=== PATIENT | female | born 1950 | race Caucasian/White ===

== ENCOUNTER 2019-02-01 08:28 | Day surgery (SDC) | payer OTHER, SELFPAY ==
--- NOTE | 2019-02-01 | PATH_ITS ---
[facility] Accession Number: [id number] . 01 Material submitted: . PART A: ileum - TERMINAL ILEUM PART B: colon - RIGHT COLON RANDOM PART C: colon - TRANSVERSE COLON RANDOM PART D: colon - LEFT COLON RANDOM PART E: sigmoid colon - SIGMOID POLYP PART F: rectum - RECTAL . 02 Diagnosis: A. Terminal Ileum, Biopsy: Small bowel mucosa with no diagnostic abnormality. Negative for active inflammation, dysplasia, and malignancy. . B.- D., F. Right Colon, Transverse Colon, Left Colon, Rectum, Biopsies: Colonic mucosa with no diagnostic abnormality. Negative for active, chronic, and microscopic colitis. Negative for dysplasia and malignancy. . E. Sigmoid Colon, Polyp, Biopsy: Tubular adenoma. I02/02/2019 . 02 Electronically signed: . Dominique Lopez MD, Pathologist NPI- [id number] . 01 Gross description: . Part A: TERMINAL ILEUM: Received in formalin are 4 fragment(s) of sheriff, soft tissue measuring 0.2 x 0.2 x 0.1 cm to 0.3 x 0.2 x 0.2 cm which is entirely submitted and submitted entirely in 1 cassette(s) .. Part B: RIGHT COLON RANDOM: Received in formalin are multiple fragment(s) of sheriff, soft tissue measuring 0.2 x 0.2 x 0.2 cm to 0.4 x 0.3 x 0.2 cm which is entirely submitted and submitted entirely in 1 cassette(s) Part C: TRANSVERSE COLON RANDOM: Received in formalin are 4 fragment(s) of sheriff, soft tissue measuring 0.2 x 0.2 x 0.2 cm to 0.5 x 0.4 x 0.4 cm which is entirely submitted and submitted entirely in 1 cassette(s) Part D: LEFT COLON RANDOM: Received in formalin are multiple fragment(s) of sheriff, soft tissue measuring 0.1 x 0.1 x 0.1 cm to 0.3 x 0.3 x 0.3 cm which is entirely submitted and submitted entirely in 1 cassette(s) Part E: SIGMOID POLYP: Received in formalin is 1 fragment(s) of sheriff, soft tissue measuring 0.3 x 0.2 x 0.2 cm which is entirely submitted and submitted entirely in 1 cassette(s) Part F: RECTAL: Received in formalin are 2 fragment(s) of sheriff, soft tissue measuring 0.2 x 0.2 x 0.2 cm to 03 x 0.2 x 0.2 cm which is entirely submitted and submitted entirely in 1 cassette(s) /D[facility] /[facility] . 02 Pathologist provided ICD-10: D12.5 . 02 CPT . 308046, 653844, 107421, 850728, 511607, 362432 Performed at: 01 [facility] [address] [place] [address], [place], [place] [id number] MD Fausto Iglesias MD Phone: [phone] Performed at: 02 [facility] [place] [address] [place], [place] [id number] MD Dominique Lopez MD Phone: [phone]
--- NOTE | 2019-02-01 08:43 | P.HP_ITS ---
History of Present Illness Date Patient Seen: 02/01/19 Chief complaint: [id number] COLONOSCOPY Narrative: 68-year-old female with history of Crohn's disease who was last seen at our office on 01/05/[address] Brown. Please refer to that note for further details. She has a history of diarrhea which is concerning for a Crohn's flare. Patient History Medical History (Updated 02/01/19 @ 08:53 by Marcus Ch) Crohn's colitis (Acute) Depression (Acute) Diabetes mellitus (Acute) Hypertension (Acute) Sleep apnea (Acute) Meds Home Medications Medication Instructions Recorded Confirmed Type atorvastatin 10 mg PO DAILY 02/01/19 02/01/19 History cyclobenzaprine 10 mg PO TID PRN 02/01/19 02/01/19 History losartan 50 mg PO DAILY 02/01/19 02/01/19 History metformin 1,000 mg PO QPM 02/01/19 02/01/19 History methylphenidate HCl 40 mg PO DAILY 02/01/19 02/01/19 History trazodone 50 mg PO BEDTIME 02/01/19 02/01/19 History Allergies Allergy/AdvReac Type Severity Reaction Status Date / Time Iodinated Contrast- Oral and Allergy Severe Hives Verified 02/01/19 08:56 IV Dye zolpidem [From Ambien] Allergy Intermediate Nose bleeds Verified 02/01/19 08:56 Sulfa (Sulfonamide Allergy Mild unknown Verified 02/01/19 08:56 Antibiotics) Exam Narrative Exam Narrative: General: Patient is obese, not in apparent distress Cardiovascular: Regular rate and rhythm, no murmurs, rubs, or gallops; no evidence of edema; no palpable abdominal aortic aneurysm Gastrointestinal: Normoactive bowel sounds, soft, nontender, nondistended, no rebound tenderness, no hepatosplenomegaly, no evidence of hernia Assessment & Plan Assessment & Plan narrative: 68-year-old female with a history of Crohn's disease and diarrhea who is here for disease activity assessment and colon ca ncer surveillance. Regarding the procedure(s), the risks and potential complications, benefits, and alternatives (including not doing the procedure) were discussed with the patient. The risks include but are not limited to bleeding, splenic injury, infection, perforation which may require surgical intervention, missed lesions, and adverse reactions to sedative medicines. After a question and answer period, the patient agreed to proceed with the procedure(s) and gives informed consent.
[2019-02-01 08:59] VITALS: BMI 36.6
[2019-02-01 09:03] VITALS: BP 133/84; PULSE 102; RESP 12; TEMP 36.4; O2SAT 96
[2019-02-01] MEDS: SODIUM CHLORIDE 0.9% 1,000 ML 70 ML IV (09:19)
[2019-02-01 09:42] VITALS: BMI 36.6
[2019-02-01] MEDS: MIDAZOLAM 5 MG/5 ML VIAL IV (09:53)
[2019-02-01] MEDS: fentaNYL 250 MCG/5 ML INJ IV (09:54)
--- NOTE | 2019-02-01 10:16 | PM.OP.ENDO ---
Operative Date/Time/Diagnoses Date of procedure: 02/01/19 Procedure Notes Procedure in detail: Surgeon: Ladarius Brady MD Procedure: Colonoscopy with polypectomy and random biopsies Preoperative diagnosis: Crohn's disease with diarrhea Postoperative diagnosis: Sigmoid polyp status post polypectomy, grade 1 internal hemorrhoids, normal visualized mucosa Medications: Conscious sedation using 5 mg IV of Midazolam and 150 mcg IV of Fentanyl Preanesthesia Assessment An H and P was performed/updated and the Px?s ASA class is 2. The procedure was discussed in detail with the patient. The potential risks and complications including infection, bleeding, missed lesions, perforation, need for surgery in case of perforation, prolonged hospital stay, and were explained. A brief question and answer period was allotted and once all questions were answered, informed consent was obtained. The patient was brought back to the procedure room and placed on standard monitoring. The patient?s vital signs were monitored continuously throughout the entire procedure. Prior to starting, a timeout was performed to confirm the patient?s identity, allergies, medications, and procedure. Procedure in detail The patient was placed in left lateral decubitus position and once adequate sedation was obtained a LOR was performed. The digital rectal examination did not reveal any palpable lesions. The tip of the colonoscope was placed in the anal canal and advanced without difficulty all the way to the cecum which was identified by the appendiceal orifice and the ileocecal valve. The terminal ileum was intubated to a distance of 5 cm from the ileocecal valve and there was no gross abnormality seen. Random biopsies were taken. The scope was then brought back to the cecum and careful examination of all gonzalez of the colon was performed with irrigation of any residual stool. The colonic mucosa throughout the entire colon appeared normal. Random colon biopsies were obtained from the right colon, transverse colon, left colon, and rectum. In the sigmoid colon, a 3 mm sessile polyp was seen and removed by means of cold Jumbo forceps. Resection and retrieval were complete with minimal bleeding Retroflexion was performed in the rectum with evidence of grade 1 internal hemorrhoids The patient tolerated the procedure well and will be brought back to the recovery area to be discharged once criteria are met. The prep was judged to be good and adequate to identify polyps less than 5 mm. The withdrawal time was 13 minutes. The total physician intraservice time was 23 minutes. Complications There were no complications and estimated blood loss was minimal. Recommendations: Resume previous diet Continue outPx medications Follow up pathology results Repeat colonoscopy in 5 years for polyp surveillance Office follow up with Dr. Brown at next available appointment An emergency contact number was given to the patient for any complications related to the procedure
[2019-02-01 10:17] VITALS: BP 122/81; PULSE 95; RESP 16; TEMP 36.5; O2SAT 95
[2019-02-01 10:22] VITALS: BP 110/68; PULSE 93; RESP 14; O2SAT 94
--- NOTE | 2019-02-01 10:22 | P.DS_ITS ---
History of Present Illness Chief complaint: [id number] COLONOSCOPY Narrative: 68-year-old female with history of Crohn's disease who was last seen at our office on 01/05/[address] Brown. Please refer to that note for further details. She has a history of diarrhea which is concerning for a Crohn's flare. Discharge Providers Discharge Date: 02/01/19 Primary care physician: Elkin Ernandez MD Consults: 02/01/19 09:03 Consult to Respiratory Therapy Evaluate & Treat Comment: Physician Instructions: Evaluate and treat Discharge provider: Ladarius Brady MD Exam Vital Signs (past 8 hours): - 02/01/19 09:03 Temperature 97.5 F L Pulse Rate 102 H Respiratory Rate 12 Blood Pressure 133/84 Pulse Oximetry 96 Oxygen Delivery Method Room Air Narrative Exam Narrative: General: Patient is obese, not in apparent distress Cardiovascular: Regular rate and rhythm, no murmurs, rubs, or gallops; no evidence of edema; no palpable abdominal aortic aneurysm Gastrointestinal: Normoactive bowel sounds, soft, nontender, nondistended, no rebound tenderness, no hepatosplenomegaly, no evidence of hernia Discharge Plan Discharge Plan Patient Disposition: Home Discharge Med Rec/Prescriptions Prescriptions: Continued losartan 50 mg Tablet 50 mg PO DAILY RF: 0 cyclobenzaprine 10 mg Tablet 10 mg PO TID PRN (Reason: Back Pain) RF: 0 trazodone 50 mg Tablet 50 mg PO BEDTIME RF: 0 atorvastatin 10 mg Tablet 10 mg PO DAILY RF: 0 methylphenidate HCl 40 mg Capsule,Er Biphasic 50-50 40 mg PO DAILY RF: 0 metformin 1,000 mg Tablet Extended Release 24hr 1,000 mg PO QPM RF: 0 Follow up/Referrals: Elkin Ernandez MD [Primary Care Provider] - Discharge Orders: Discharge (Order); Ordered 02/01/19 Ordered By: Ladarius Brady Provider Discharge Instructions Diet: Diet as Tolerated Visit Report/Discharge Packet Stand Alone Forms: Colonoscopy Result: Med [facility] Discharge Data Primary Care Provider: Elkin Ernandez Attending Provider: Ladarius Brady
[2019-02-01 10:27] VITALS: BP 108/70; PULSE 102; RESP 16; O2SAT 97
[2019-02-01 10:33] VITALS: BP 109/71; PULSE 95; RESP 14; TEMP 36.7; O2SAT 97
[2019-02-01 10:50] VITALS: BP 106/75; PULSE 87; RESP 18; TEMP 36.4; O2SAT 95
== END 2019-02-01 11:02 | disposition home or self-care (01) ==
PROVIDERS: PCP Family Medicine; Visit Provider Internal Medicine Gastroenterology
PROC: 0DJD8ZZ Inspection of Lower Intestinal Tract, Via Natural or Artificial Opening Endoscopic (ICD-10-PCS; CPT 45378; principal; 2019-02-01 10:00)
DX: K50.90 Crohn's disease, unspecified, without complications (principal); Z86.010 Personal history of colon polyps; R19.7 Diarrhea, unspecified; E11.9 Type 2 diabetes mellitus without complications; I10 Essential (primary) hypertension; R53.82 Chronic fatigue, unspecified; F32.9 Major depressive disorder, single episode, unspecified; K64.0 First degree hemorrhoids; D12.5 Benign neoplasm of sigmoid colon
CPT/HCPCS: 45380; J2250; J3010

== ENCOUNTER → 2020-02-15 14:35 | Outpatient (CLI) | payer OTHER, SELFPAY ==
--- NOTE | 2020-02-15 15:54 | PM.TREADMILL ---
Cardiac Stress Test Report Referral & Results Date Patient Seen: 02/15/20 Time Patient Seen: 15:54 Requesting provider: Dinesh Mendoza Indication: dyspnea Rest ECG: sinus rhythm Procedure Note: Stardard Abdon protocol, 3:13, 3.5 METS Reduced exercise capacity, JANEE +43% Normal hemodynamic response to exercise No chest pain or anginal symptoms No ST changes or ectopy Impression: Equivocal stress test Please note: Actual ECG tracings can be found in the PACS system.
--- NOTE | 2020-02-17 02:01 | DI.NM.S_ITS ---
DATE OF SERVICE: 02/15/2020 PROCEDURE: Exercise perfusion study. INDICATIONS: Exertional shortness of breath, hypertension, hyperlipidemia, diabetes mellitus. RADIOPHARMACEUTICAL: 25.8 mCi technetium-99m Myoview intravenous was injected at stress and 25.6 mCi technetium-99m Myoview intravenous was injected at rest. CARDIAC STRESS: The patient underwent exercise perfusion study under the supervision of an attending staff. She walked on Abdon protocol for 3 minutes and 13 seconds and developed shortness of breath and fatigue. No chest pain. Baseline blood pressure 130/80. Peak blood pressure 178/90. The patient achieved 99% of target heart rate, 4.6 METS of workload, and functional aerobic impairment positive 43%. Baseline rhythm was sinus. During stress, there was some artifact but no convincing ischemic changes. No significant arrhythmia seen. RAW DATA: There is increased subdiaphragmatic activity. The patient's weight is 206 pounds. Gated study resting LV ejection fraction 68 and stress LV ejection fraction 67% without any obvious wall motion abnormalities. Resting end-diastolic volume 74 mL. No transient ischemic dilatation. TID ratio 1.03 which is within normal limits. Lung heart ratio 0.32, which is within normal limits. MYOCARDIAL PERFUSION SCAN: Stress supine, resting supine images revealed minimally decreased perfusion of anterior wall, anterior apex which got significantly improved during prone images suggestive of breast tissue attenuation artifact. No convincing ischemia or infarction pattern seen during prone images. CONCLUSION: I will call this study likely a normal myocardial perfusion study with evidence of breast tissue attenuation artifact which got improved during prone images. Poor exercise tolerance. Patient developed shortness of breath during exercise. Normal hemodynamic response. No significant arrhythmias. As far as perfusion scan is concerned, this is a low risk myocardial perfusion scan. Consider workup to rule out other etiologies like pulmonary workup as well as diastolic dysfunction. Dominique Walden - SHAYY/nadege/BERNADINE doc#: [id number]/job#: [id number] dd: 02/16/2020 17:04:00 dt: 02/17/2020 01:48:00 DICTATING MD/COPIES TO: Beverley Carr MD COPIES MNE: MARIANNE;
== END ==
PROVIDERS: PCP Family Medicine; Referring Provider Internal Medicine Cardiovascular Disease; Visit Provider Internal Medicine Cardiovascular Disease
DX: R06.02 Shortness of breath (principal); R06.09 Other forms of dyspnea; I10 Essential (primary) hypertension; R00.2 Palpitations; E78.5 Hyperlipidemia, unspecified; I11.9 Hypertensive heart disease without heart failure
CPT/HCPCS: 78452; 93017; A9502

== ENCOUNTER 2020-04-01 20:52 | Emergency (ER) | payer OTHER, SELFPAY ==
[2020-04-01 20:56] VITALS: BP 152/69; PULSE 85; RESP 18; TEMP 36.6; O2SAT 97
[2020-04-01 21:25] LABS: Appearance Urine UA SL CLOUDY; Bilirubin Urine UA NEGATIVE (NEGATIVE); Color Urine UA YELLOW; Glucose Urine UA NEGATIVE (Negative); Ketones Urine UA NEGATIVE (NEGATIVE); Leukocyte Esterase Urine UA NEGATIVE (NEGATIVE); Nitrite Urine UA NEGATIVE (Negative); Occult Blood Urine UA 3+ (Negative); Protein Urine UA TRACE (Negative); Specific Gravity Urine UA <=1.005 (1.000-1.035); Urobilinogen Urine UA 0.2 E.U./dL (0.2)
[2020-04-01 21:29] LABS: RBC Urine 30-100/HPF (0-5/HPF); Squamous Epithelial Cell Urine 1-5 /HPF (0-5/HPF); WBC Urine 1-5/HPF (0-5/HPF)
[2020-04-01 21:30] LABS: Amorphous Sediment Urine 1+; Bacteria Urine Occasional (0-1); Culture Indicated Urine Cult Not Indicated
[2020-04-01 21:51] LABS: Add Manual Diff / Slide Review NO; Basophils Absolute Auto 0 /uL (0-100); Basophils Percent Auto 0.3 % (0-2); Eosinophils Absolute Auto 100 /uL (0-450); Hematocrit 37.8 % (36-46); Hemoglobin 12.6 g/dL (12.0-16.0); Lymphocytes Absolute Auto 3800 /uL (1100-4500); Lymphocytes Percent Auto 33.8 % (25-40); Mean Corpuscular HGB Conc 33.4 % (30-36); Mean Corpuscular Hemoglobin 30.2 PG (26-34); Mean Corpuscular Volume 90.3 fL (80-100); Monocytes Absolute Auto 800 /uL (0-900); Monocytes Percent Auto 7.2 % (3-14); Neutrophils Absolute Auto 6400 /uL (1500-7000); Neutrophils Percent Auto 57.7 % (50-75); Platelet Count 269 X10^3/uL (150-400); Red Blood Cell Count 4.18 X10^6/uL (4.0-5.2); Red Cell Distribution Width 13.6 % (11.6-14.8); White Blood Cell Count 11.2 X10^3/uL (4.5-11.0)
[2020-04-01 21:57] LABS: Alanine Aminotransferase 41 IU/L (<35); Albumin Globulin Ratio 1.3 (1.0-2.8); Alkaline Phosphatase 85 U/L (38-126); Aspartate Aminotransferase 40 IU/L (14-36); BUN Creatinine Ratio 13.7 (6-22); Bilirubin Total 0.3 mg/dL (0.2-1.3); Blood Urea Nitrogen 13 mg/dL (7-17); Calcium 9.1 mg/dL (8.4-10.2); Carbon Dioxide 24 mmol/L (22-32); Chloride 107 mmol/L (98-107); Estimated Glomerular Filt Rate 58.7 mL/min (>60); Glucose 132 mg/dL (80-110); HEMOLYSIS 17 (0-50); Lipase 73 U/L (23-300); Sodium 137 mmol/L (137-145)
[2020-04-01] MEDS: SODIUM CHLORIDE 0.9% 1,000 ML 150 ML IV (22:13)
[2020-04-01] MEDS: KETOROLAC 60 MG/2 ML VIAL 30 MG IV (22:14)
--- NOTE | 2020-04-01 22:25 | DI.CT.S_ITS ---
PROCEDURE: CT KIDNEY URETER BLADDER (KUB) INDICATIONS: Left flank pain with hematuria TECHNIQUE: Noncontrast 5 mm thick sections acquired from the diaphragms to the symphysis. 5 mm thick coronal and sagittal reformats were then performed. For radiation dose reduction, the following was used: automated exposure control, adjustment of mA and/or kV according to patient size. COMPARISON: None. FINDINGS: Image quality: Excellent. Lung bases: Lung bases are clear. Heart size is normal. Small hiatal hernia. The Urinary system: There is a 4 mm stone in the distal left ureter at the left UVJ. Mild left hydronephrosis is present. There is mild left periureteral stranding. A 2 mm nonobstructive calculus is present in left kidney. There is a 1 mm nonobstructing stone in right kidney. No right hydronephrosis. Both kidneys are normal in size. Both ureters appear non-dilated throughout their expected courses. Bladder is contracted; no calcified bladder stones. Other solid organs: There is hepatic steatosis. Liver is normal in size. Gallbladder contains a gallstone. Pancreas is normal in contours. Spleen is normal in size. No adrenal nodules. Peritoneum and bowel: Unenhanced bowel loops demonstrate normal wall thickness and caliber. No free fluid or air. Nodes and vessels: No retroperitoneal or mesenteric adenopathy by size criteria. Aorta and inferior vena cava are normal in caliber. Abdominal wall: No ventral hernias. Pelvis: No free pelvic fluid. No inguinal hernias or adenopathy. Bones: No suspicious bony lesions. No vertebral body compression fractures. [id number]-rg-[id number] degenerative changes in lumbar spine. IMPRESSION: 1. A 4 mm left distal ureteral stone in the left uterovesical junction. There is mild left hydronephrosis. 2. Several 1-2 mm nonobstructive renal calculi bilaterally. 3. Hepatic steatosis. 4. Cholelithiasis. No significant discrepancy with the manager [employer] [facility] preliminary report. Dictated by: Tommy Sanchez M.D. on 04/02/2020 at 7:51 Approved by: Tommy Sanchez M.D. on 04/02/2020 at 8:00
[2020-04-01 23:21] VITALS: BP 112/65; PULSE 62; RESP 12; O2SAT 100
--- NOTE | 2020-04-01 23:55 | ED_ITS ---
HPI - Back Pain/Injury General Chief Complaint: Back Pain/Injury Stated Complaint: thinks she has a kidney stone Time Seen by Provider: 04/01/20 22:24 Source: patient Mode of arrival: Ambulatory Limitations: no limitations History of Present Illness HPI Narrative: The patient developed left midback pain this morning. She has had nausea. She has some pain radiating to the left flank. She noted hematuria. She has had no emesis, no diarrhea. She denies dysuria. She has no fever. She has a prior history of kidney stones. She has never required interventional care for the kidney stones. She has no fever chills with current symptoms. She denies recent illness. She has no URI symptoms, or cough. Related Data Home Medications Medication Instructions Recorded Confirmed atorvastatin 10 mg PO DAILY 02/01/19 02/01/19 cyclobenzaprine 10 mg PO TID PRN 02/01/19 02/01/19 losartan 50 mg PO DAILY 02/01/19 02/01/19 metformin 1,000 mg PO QPM 02/01/19 02/01/19 methylphenidate HCl 40 mg PO DAILY 02/01/19 02/01/19 trazodone 50 mg PO BEDTIME 02/01/19 02/01/19 Previous Rx's Medication Instructions Recorded hydrocodone-acetaminophen [Henderson] 1 tab PO Q4-6H PRN #10 tab 04/02/20 ondansetron 4 mg PO Q4H PRN #10 tab 04/02/20 Allergies Allergy/AdvReac Type Severity Reaction Status Date / Time Iodinated Contrast Media Allergy Severe Hives Verified 02/01/19 08:56 [Iodinated Contrast- Oral and IV Dye] zolpidem [From Ambien] Allergy Intermediate Nose bleeds Verified 02/01/19 08:56 Sulfa (Sulfonamide Allergy Mild unknown Verified 02/01/19 08:56 Antibiotics) Review of Systems Review of Systems ROS Unobtainable: All systems reviewed & are unremarkable except as noted in HPI and below ENT Ears, Nose, Mouth, and Throat: Denies dizziness and Denies sore throat Cardiovascular Cardiovascular: Denies chest pain, Denies irregular heart rhythm, Denies lightheadedness, Denies dyspnea and Denies orthopnea Respiratory Respiratory: Denies cough and Denies dyspnea Gastrointestinal Gastrointestinal: Reports abdominal pain (Left mid abdomen), Denies dyspepsia, Denies diarrhea and Reports nausea Genitourinary Genitourinary: Reports hematuria and Denies dysuria Genitourinary: Reports hematuria and Denies dysuria Musculoskeletal Musculoskeletal: Reports as per HPI and Reports back pain Integumentary/Breasts Skin/Breast: Denies erythema, Denies rash and Denies wounds Neurologic Neurologic: Denies confusion and Denies dizziness Psychiatric Psychiatric: Denies anxiety and Denies confusion Patient History Medical History Crohn's colitis (Acute) Depression (Acute) Diabetes mellitus (Acute) Hypertension (Acute) Sleep apnea (Acute) Exam Initial Vital Signs Initial Vital Signs: Vital Signs Temperature 97.9 F 04/01/20 20:56 Pulse Rate 85 04/01/20 20:56 Respiratory Rate 18 04/01/20 20:56 Blood Pressure 152/69 H 04/01/20 20:56 Pulse Oximetry 97 04/01/20 20:56 Const General: cooperative and well developed Nutritional Appearance: well nourished HENMT Throat: posterior oropharynx normal Eyes Pupils: PERRL EOM: EOM intact bilaterally Resp Effort & Inspection: normal respiratory effort and able to speak in complete sentences Auscultation: clear to auscultation bilaterally, no rales, no rhonchi and no wheezes Cardio Rate: regular rate Rhythm: regular rhythm Heart Sounds: S1 normal, S2 normal, no click, no gallops, no murmurs and no rubs Pulses: normal peripheral pulses GI Inspection: non-distended Palpation: soft, no hepatosplenomegaly, No pulsatile mass and tender (Left mid abdomen without guarding or rebound) Auscultation: normal bowel sounds Back/Spine/Pelvis Back: No CVA tenderness Skin General: no rashes or lesions noted and No jaundice Neuro General: patient alert, patient oriented x3, gait normal and no focal motor deficits Speech: speech normal Extrem General: no pedal edema and no calf tenderness Course Course Course Narrative: The patient's pain has resolved with Toradol. She has no nausea vomiting. She has no fever. It is noted that the stone is at the UV junction. Orders Ordered: ED Orders 04/01/20 21:10 Urinalysis and Microscopic Stat 04/01/20 21:40 Complete Blood Count AUTO DIFF Stat Comprehensive Metabolic Panel Stat Lipase Stat 04/01/20 22:25 CT kidney ureter bladder (KUB) Stat Sodium Chloride (Normal Saline 0.9%) 1,000 mls @ 150 mls/hr IV CONT ANGELIA Last Admin: 04/01/20 22:13 Dose: 150 mls/hr Documented by: SINCERE Discontinued Medications Ketorolac Tromethamine (Toradol) 30 mg IV NOW ONE Stop: 04/01/20 22:10 Last Admin: 04/01/20 22:14 Dose: 30 mg Documented by: SINCERE Tamsulosin HCl (Flomax) 0.4 mg PO NOW ONE Stop: 04/01/20 23:30 Last Admin: 04/02/20 00:05 Dose: 0.4 mg Documented by: SINCERE Vital Signs Vital signs: Vital Signs - 8 hr 04/01/20 20:56 04/01/20 23:21 Temperature 97.9 F Pulse Rate 85 62 Respiratory Rate 18 12 Blood Pressure 152/69 H Blood Pressure [Right Arm] 112/65 Pulse Oximetry 97 100 MDM - Back Pain/Injury Lab Data Result diagrams: 04/01/20 21:40 04/01/20 21:40 Labs: Lab Results 04/01/20 04/01/20 04/01/20 Range/Units 21:10 21:40 21:40 WBC 11.2 H (4.5-11.0) X10^3/uL RBC 4.18 (4.0-5.2) X10^6/uL Hgb 12.6 (12.0-16.0) g/dL Hct 37.8 (36-46) % MCV 90.3 (80-100) fL MCH 30.2 (26-34) PG MCHC 33.4 (30-36) % RDW 13.6 (11.6-14.8) % Plt Count 269 (150-400) X10^3/uL Neut % (Auto) 57.7 (50-75) % Lymph % (Auto) 33.8 (25-40) % [place] % (Auto) 7.2 (3-14) % Eos % (Auto) 1.0 L (2-4) % Baso % (Auto) 0.3 (0-2) % Neut # (Auto) 6400 (3369-0875) /uL Lymph # (Auto) 3800 (5143-6233) /uL [place] # (Auto) 800 (0-900) /uL Eos # (Auto) 100 (0-450) /uL Baso # (Auto) 0 (0-100) /uL Sodium 137 (137-145) mmol/L Potassium 4.0 (3.4-5.1) mmol/L Chloride 107 (98-107) mmol/L Carbon Dioxide 24 (22-32) mmol/L BUN 13 (7-17) mg/dL Creatinine 0.95 (0.52-1.04) mg/dL Estimated GFR 58.7 L (>60) mL/min BUN/Creatinine Ratio 13.7 (6-22) Glucose 132 H (80-110) mg/dL Calcium 9.1 (8.4-10.2) mg/dL Total Bilirubin 0.3 (0.2-1.3) mg/dL AST 40 H (14-36) IU/L ALT 41 H (<35) IU/L Alkaline Phosphatase 85 (38-126) U/L Total Protein 7.0 (6.3-8.2) g/dL Albumin 4.0 (3.5-5.0) g/dL Globulin 3.0 (1.7-4.1) g/dL Albumin/Globulin Ratio 1.3 (1.0-2.8) Lipase 73 (23-300) U/L Urine Color Yellow Urine Appearance Sl cloudy Urine pH 6.0 (4.5-8.0) Ur Specific [place] <=1.005 (1.000-1.035) Urine Protein Trace H (Negative) Urine Glucose (UA) Negative (Negative) g/dL Urine Ketones Negative (NEGATIVE) Urine Occult Blood 3+ H (Negative) Urine Nitrate Negative (Negative) Urine Bilirubin Negative (NEGATIVE) Urine Urobilinogen 0.2 (0.2) E.U./dL Ur Leukocyte Esterase Negative (NEGATIVE) Urine RBC 30-100/hpf H (0-5/HPF) Urine WBC 1-5/hpf (0-5/HPF) Ur Squamous Epith Cells 1-5 /hpf (0-5/HPF) Amorphous Sediment 1+ Urine Bacteria Occasional (0-1) (None) Ur Culture Indicated? Cult not indicated Imaging Data CT scan - abdomen/pelvis: Radiologist's Impression: 5 mm calculus at the left UV junction. 3 mm nephrolithiasis. Fatty liver. Normal appendix. L2-3 through L4-5 spinal stenosis. Discharge Plan Departure Patient Disposition: Home Clinical Impression: Ureterolithiasis Lumbar spinal stenosis Qualifiers: Neurogenic claudication status: unspecified Qualified Code(s): M48.061 - Spinal stenosis, lumbar region without neurogenic claudication Instructions: DI for Kidney Stones, DI for Spinal Stenosis Activity Restrictions/Additional Instructions: Drink plenty of water, stay well hydrated. Tylenol 2 tabs every 4 hours as needed for pain. Henderson every 4 hours as needed for added pain control. Zofran every 4 hours as needed for nausea. Strain your urine, be sure you know if the stone has passed. If the stone has not passed within 5 days, follow-up with your doctor. Return the ER if he does increasing pain, or fever. The CT also found a narrowing of the spinal column in your lower back, called spinal stenosis. This can lead to chronic back pain, as well as neurologic problems in your lower body. Follow-up with your doctor regarding this finding. Prescriptions: New ondansetron 4 mg tablet,disintegrating 4 mg PO Q4H PRN (Reason: nausea and vomiting) Qty: 10 RF: 0 hydrocodone-acetaminophen [Henderson] 5-325 mg tablet 1 tab PO Q4-6H PRN (Reason: pain) Qty: 10 RF: 0 No Action losartan 50 mg Tablet 50 mg PO DAILY RF: 0 cyclobenzaprine 10 mg Tablet 10 mg PO TID PRN (Reason: Back Pain) RF: 0 trazodone 50 mg Tablet 50 mg PO BEDTIME RF: 0 atorvastatin 10 mg Tablet 10 mg PO DAILY RF: 0 methylphenidate HCl 40 mg Capsule,Er Biphasic 50-50 40 mg PO DAILY RF: 0 metformin 1,000 mg Tablet Extended Release 24hr 1,000 mg PO QPM RF: 0 Referrals: Elkin Ernandez MD [Primary Care Provider] -
[2020-04-02] MEDS: TAMSULOSIN 0.4 MG CAPSULE PO (00:05)
[2020-04-02] MEDS: HYDROCODONE/ACET 5/325 PREPACK 1 BOTTLE MISC (01:01)
[2020-04-02] MEDS: ONDANSETRON 4 MG ODT PREPACK 1 BOTTLE MISC (01:01)
[2020-04-02 01:10] VITALS: BP 132/102; PULSE 74; RESP 16; O2SAT 98
== END 2020-04-02 01:12 | disposition home or self-care (01) ==
PROVIDERS: Emergency Provider Emergency Medicine; PCP Family Medicine
DX: N20.2 Calculus of kidney with calculus of ureter (principal); Z87.442 Personal history of urinary calculi; M48.061 Spinal stenosis, lumbar region without neurogenic claudication; R11.0 Nausea
CPT/HCPCS: 36415; 74176; 80053; 81001; 83690; 85025; 96361; 96374; 99284; J1885

== ENCOUNTER 2021-03-08 06:16 | Emergency (ER) | payer OTHER, SELFPAY ==
[2021-03-08 06:25] VITALS: BP 140/104; PULSE 72; RESP 18; TEMP 36.7; O2SAT 95; BMI 37.3
--- NOTE | 2021-03-08 06:32 | ED_ITS ---
HPI - Back Pain/Injury <Ludwin Forbes, DO - Last Filed: 03/08/21 19:07> General Chief Complaint: Back Pain/Injury Stated Complaint: lot of pain in lower back Time Seen by Provider: 03/08/21 06:19 Source: patient Mode of arrival: Ambulatory Limitations: no limitations History of Present Illness HPI Narrative: 70-year-old female nonsmoker with history of hypertension, diabetes, back pain and kidney stones presents with family in the chief complaint of a sudden onset left lower back and flank pain that started early this morning. She states it woke her up from sleep and is not obviously worsened by any particular activity. She denies any obvious palliation, radiation either. She denies fever or chills. She has had nausea and a few episodes of vomiting presumably due to the pain. She denies any dysuria, frequency or urgency. She took one vicodin prior to her arrival MD Complaint: back pain Onset (ago): hour(s) Duration: constant Similar Symptoms Previously: Yes Location: lumbar spine Severity: moderate Quality: sharp and stabbing Radiation: none Relieving factors: none Related Data Home Medications Medication Instructions Recorded Confirmed atorvastatin 10 mg PO DAILY 02/01/19 02/01/19 cyclobenzaprine 10 mg PO TID PRN 02/01/19 02/01/19 losartan 50 mg PO DAILY 02/01/19 02/01/19 metformin 1,000 mg PO QPM 02/01/19 02/01/19 methylphenidate HCl 40 mg PO DAILY 02/01/19 02/01/19 trazodone 50 mg PO BEDTIME 02/01/19 02/01/19 Previous Rx's Medication Instructions Recorded hydrocodone-acetaminophen [[place]] 1 tab PO Q4-6H PRN #10 tab 04/02/20 ondansetron 4 mg PO Q4H PRN #10 tab 04/02/20 hydrocodone-acetaminophen 1 tab PO Q6H PRN #14 tab 03/08/21 ondansetron HCl [Zofran] 4 mg PO Q6H PRN #14 tab 03/08/21 tamsulosin [Flomax] 0.4 mg PO DAILY #7 cap 03/08/21 Allergies Allergy/AdvReac Type Severity Reaction Status Date / Time Iodinated Contrast Media Allergy Severe Hives Verified 03/08/21 06:25 [Iodinated Contrast- Oral and IV Dye] zolpidem [From Ambien] Allergy Intermediate Nose bleeds Verified 03/08/21 06:25 Sulfa (Sulfonamide Allergy Mild unknown Verified 03/08/21 06:25 Antibiotics) Review of Systems <Ludwin Forbes DO - Last Filed: 03/08/21 19:07> Constitutional Constitutional: Denies chills, Denies fatigue, Denies fever(s), Denies frequent falls, Denies lethargy and Denies weakness Eyes Eyes: Denies change in vision, Denies eye discharge, Denies irritation and Denies loss of vision ENT Ears, Nose, Mouth, and Throat: Denies change in voice, Denies dizziness, Denies neck pain, Denies sore throat and Denies throat swelling Cardiovascular Cardiovascular: Denies chest pain, Denies irregular heart rhythm, Denies lightheadedness, Denies palpitations, Denies dyspnea, Denies dyspnea on exertion and Denies orthopnea Respiratory Respiratory: Denies cough, Denies dyspnea, Denies dyspnea on exertion and Denies wheezing Gastrointestinal Gastrointestinal: Denies abdominal pain, Denies change in bowel habits, Denies diarrhea, Denies nausea and Denies vomiting Genitourinary Genitourinary: Reports flank pain Genitourinary: Reports flank pain Musculoskeletal Musculoskeletal: Denies neck pain and Denies numbness Integumentary/Breasts Skin/Breast: Denies pruritus, Denies erythema, Denies rash and Denies wounds Neurologic Neurologic: Denies behavioral changes, Denies confusion, Denies dizziness, Denies frequent falls, Denies loss of vision, Denies numbness and Denies weakness Psychiatric Psychiatric: Denies anxiety, Denies behavioral changes, Denies confusion, Denies depression, Denies homicidal ideation and Denies suicidal ideation Endocrine Endocrine: Denies fatigue, Denies flushing and Denies palpitations Hematologic/Lymphatic Hematologic/Lymphatic: Denies easy bruising Allergic/Immunologic Allergic/Immunologic: Denies urticaria, Denies throat swelling and Denies wheezing Patient History <Ludwin Forbes DO - Last Filed: 03/08/21 19:07> Medical History (Updated 03/08/21 @ 08:06 by Elsa Casarez DO) Crohn's colitis Depression Diabetes mellitus Hypertension Sleep apnea Social History Smoking Status: Never smoker Smoking Status: Never smoker alcohol intake frequency: holidays/special occasions only Substance Use Type: does not use Exam <Ludwin Forbes DO - Last Filed: 03/08/21 19:07> Narrative Exam Narrative: GENERAL: [70] year old patient appears stated age. Well-nour ished, well-developed patient, in mild distress. Obviously uncomfortable, rubbing her left lower back, rocking back and forth HEAD: Atraumatic. Normocephalic. EYES: Pupils equal round and reactive. Extraocular motions intact. No scleral icterus. No injection or drainage. ENT: Nose without bleeding, purulent drainage. Throat without erythema, tonsillar hypertrophy or exudate. Airway patent. NECK: Trachea midline. Non tender CARDIOVASCULAR: Regular rate and rhythm without murmurs, gallops, or rubs. RESPIRATORY: Clear to auscultation. Breath sounds equal bilaterally. No wheezes, rales, or rhonchi. GASTROINTESTINAL: Abdomen soft, non-tender, nondistended. EXTREMITIES: No edema or joint tenderness. BACK: Nontender without deformity or crepitance. No flank tenderness. NEURO: AOx3. SKIN: No rash or erythema of visible areas Initial Vital Signs Initial Vital Signs: Vital Signs Temperature 98.1 F 03/08/21 06:25 Pulse Rate 72 03/08/21 06:25 Respiratory Rate 18 03/08/21 06:25 Blood Pressure 140/104 H 03/08/21 06:25 Pulse Oximetry 95 03/08/21 06:25 <Elsa Casarez DO - Last Filed: 03/08/21 17:19> Initial Vital Signs Initial Vital Signs: Vital Signs Temperature 98.1 F 03/08/21 06:25 Pulse Rate 72 03/08/21 06:25 Respiratory Rate 18 03/08/21 06:25 Blood Pressure 140/104 H 03/08/21 06:25 Pulse Oximetry 95 03/08/21 06:25 Course <Ludwin Forbes DO - Last Filed: 03/08/21 19:07> Orders Ordered: Discontinued Medications Hydrocodone Bitart/Acetaminophen (Hydrocodone/Acet 5/325 Tablet) 1 tab PO NOW ONE Stop: 03/08/21 08:36 Last Admin: 03/08/21 08:38 Dose: 1 tab Documented by: KSWACKH Sodium Chloride (Normal Saline 0.9%) 1,000 mls @ 1,000 mls/hr IV BOLUS ONE Stop: 03/08/21 07:28 Last Infusion: 03/08/21 08:43 Dose: 0 mls/hr Documented by: Admin: 03/08/21 06:52 Dose: 1,000 mls/hr Documented by: RULA Ketorolac Tromethamine (Ketorolac 30 Mg/Ml Vial) 15 mg IV NOW ONE Stop: 03/08/21 06:30 Last Admin: 03/08/21 06:53 Dose: 15 mg Documented by: RULA Ondansetron HCl (Ondansetron 4 Mg/2 Ml Inj) 4 mg IV Q4HR PRN PRN Reason: Nausea And Vomiting Last Admin: 03/08/21 06:53 Dose: 4 mg Documented by: RULA Tamsulosin HCl (Tamsulosin 0.4 Mg Capsule) 0.4 mg PO NOW ONE Stop: 03/08/21 08:00 Last Admin: 03/08/21 08:34 Dose: 0.4 mg Documented by: COOPER Vital Signs Vital signs: Vital Signs - 8 hr 03/08/21 06:25 Temperature 98.1 F Pulse Rate 72 Respiratory Rate 18 Blood Pressure 140/104 H Pulse Oximetry 95 <Elsa Casarez DO - Last Filed: 03/08/21 17:19> Orders Ordered: Discontinued Medications Hydrocodone Bitart/Acetaminophen (Hydrocodone/Acet 5/325 Tablet) 1 tab PO NOW ONE Stop: 03/08/21 08:36 Last Admin: 03/08/21 08:38 Dose: 1 tab Documented by: COOPER Sodium Chloride (Normal Saline 0.9%) 1,000 mls @ 1,000 mls/hr IV BOLUS ONE Stop: 03/08/21 07:28 Last Infusion: 03/08/21 08:43 Dose: 0 mls/hr Documented by: Admin: 03/08/21 06:52 Dose: 1,000 mls/hr Documented by: RULA Ketorolac Tromethamine (Ketorolac 30 Mg/Ml Vial) 15 mg IV NOW ONE Stop: 03/08/21 06:30 Last Admin: 03/08/21 06:53 Dose: 15 mg Documented by: RULA Ondansetron HCl (Ondansetron 4 Mg/2 Ml Inj) 4 mg IV Q4HR PRN PRN Reason: Nausea And Vomiting Last Admin: 03/08/21 06:53 Dose: 4 mg Documented by: RULA Tamsulosin HCl (Tamsulosin 0.4 Mg Capsule) 0.4 mg PO NOW ONE Stop: 03/08/21 08:00 Last Admin: 03/08/21 08:34 Dose: 0.4 mg Documented by: COOPER Vital Signs Vital signs: Vital Signs - 8 hr 03/08/21 06:25 Temperature 98.1 F Pulse Rate 72 Respiratory Rate 18 Blood Pressure 140/104 H Pulse Oximetry 95 MDM - Back Pain/Injury <Ludwin Forbes DO - Last Filed: 03/08/21 19:07> Lab Data Result diagrams: 03/08/21 06:35 03/08/21 06:35 Labs: Lab Results 03/08/21 03/08/21 03/08/21 Range/Units 06:35 06:35 06:50 WBC 12.2 H (4.5-11.0) X10^3/uL RBC 4.35 (4.0-5.2) X10^6/uL Hgb 12.6 (12.0-16.0) g/dL Hct 38.6 (36-46) % MCV 88.9 (80-100) fL MCH 28.9 (26-34) PG MCHC 32.5 (30-36) % RDW 13.8 (11.6-14.8) % Plt Count 306 (150-400) X10^3/uL Neut % (Auto) 73.5 (50-75) % Lymph % (Auto) 20.4 L (25-40) % [place] % (Auto) 5.3 (3-14) % Eos % (Auto) 0.5 L (2-4) % Baso % (Auto) 0.3 (0-2) % Neut # (Auto) 9000 H (2135-3384) /uL Lymph # (Auto) 2500 (5776-2883) /uL [place] # (Auto) 700 (0-900) /uL Eos # (Auto) 100 (0-450) /uL Baso # (Auto) 0 (0-100) /uL Sodium 140 (137-145) mmol/L Potassium 4.2 (3.4-5.1) mmol/L Chloride 106 (98-107) mmol/L Carbon Dioxide 25 (22-32) mmol/L BUN 18 H (7-17) mg/dL Creatinine 1.09 H (0.52-1.04) mg/dL Estimated GFR 49.9 L (>60) mL/min BUN/Creatinine Ratio 16.5 (6-22) Glucose 203 H (80-110) mg/dL Calcium 9.8 (8.4-10.2) mg/dL Urine RBC >100/hpf H (0-5/HPF) Urine WBC 0-1/hpf (0-5/HPF) Ur Squamous Epith Cells 1-5 /hpf (0-5/HPF) Urine Bacteria Many (>30) H (None) Ur Culture Indicated? Specimen cultured Micro UA Comment Urine Dip Bedside Urine Glucose Negative Bedside Urine Bilirubin + 1 Bedside Urine Ketone +/- 5 Urine Specific [place] 1.030 Bedside Urine Occult Blood +++ Bedside Urine pH 6.0 Bedside Urine Protein ++ 100 Bedside Urine Urobilinogen - Negative Bedside Urine Nitrite - Negative Bedside Urine Leukocytes + 70 Esterase <Elsa Casarez, DO - Last Filed: 03/08/21 17:19> Lab Data Attestation: I reviewed the patient's lab results. Labs: Lab Results 03/08/21 03/08/21 03/08/21 Range/Units 06:35 06:35 06:50 WBC 12.2 H (4.5-11.0) X10^3/uL RBC 4.35 (4.0-5.2) X10^6/uL Hgb 12.6 (12.0-16.0) g/dL Hct 38.6 (36-46) % MCV 88.9 (80-100) fL MCH 28.9 (26-34) PG MCHC 32.5 (30-36) % RDW 13.8 (11.6-14.8) % Plt Count 306 (150-400) X10^3/uL Neut % (Auto) 73.5 (50-75) % Lymph % (Auto) 20.4 L (25-40) % [place] % (Auto) 5.3 (3-14) % Eos % (Auto) 0.5 L (2-4) % Baso % (Auto) 0.3 (0-2) % Neut # (Auto) 9000 H (4890-6207) /uL Lymph # (Auto) 2500 (8419-0728) /uL [place] # (Auto) 700 (0-900) /uL Eos # (Auto) 100 (0-450) /uL Baso # (Auto) 0 (0-100) /uL Sodium 140 (137-145) mmol/L Potassium 4.2 (3.4-5.1) mmol/L Chloride 106 (98-107) mmol/L Carbon Dioxide 25 (22-32) mmol/L BUN 18 H (7-17) mg/dL Creatinine 1.09 H (0.52-1.04) mg/dL Estimated GFR 49.9 L (>60) mL/min BUN/Creatinine Ratio 16.5 (6-22) Glucose 203 H (80-110) mg/dL Calcium 9.8 (8.4-10.2) mg/dL Urine RBC >100/hpf H (0-5/HPF) Urine WBC 0-1/hpf (0-5/HPF) Ur Squamous Epith Cells 1-5 /hpf (0-5/HPF) Urine Bacteria Many (>30) H (None) Ur Culture Indicated? Specimen cultured Micro UA Comment Urine Dip Bedside Urine Glucose Negative Bedside Urine Bilirubin + 1 Bedside Urine Ketone +/- 5 Urine Specific [place] 1.030 Bedside Urine Occult Blood +++ Bedside Urine pH 6.0 Bedside Urine Protein ++ 100 Bedside Urine Urobilinogen - Negative Bedside Urine Nitrite - Negative Bedside Urine Leukocytes + 70 Esterase MDM Narrative Medical decision making narrative: This is a 70-year-old female comes to the emergency department complaint of acute onset left flank pain about 3:00 a.m. this morning. Patient was initially seen by Dr. Forbes and signed out to myself. She was independently evaluated by myself. On exam patient has a benign abdominal exam and pain has resolved after Toradol and Zofran. She states this was somewhat similar to her left kidney stone. Her pain has resolved. She denies any fevers or chills she has had some nausea and vomiting this morning which has since resolved. She denies any chest pain or shortness of breath and no anterior abdominal pain. Patient denies any dysuria, frequency or sense of urgency. She denies any other GI symptoms or black or bloody stools. Patient does have a history of hypertension, dyslipidemia diabetes. She has had a prior 4 mm stone on the left in 2019 several 1-2 mm renal calculi noted at that time as well as a hepatic steatosis and cholelithiasis. At that time aorta and inferior vena cava were normal in caliber. Patient states that she feels much better we discussed evaluating with imaging and she defers at this time. She states that she responded well to hydrocodone for pain control last time. Plan for Flomax, hydrocodone and Zofran as needed. We did review that her urine has bacteria as well as some leukocyte esterase but she states she gets significant diarrhea with these medications and she would rather wait for urine culture then start at this time. Patient does not have any infectious symptoms otherwise and has no Nitrates in her urine and only 1 white blood cell with 1-5 squamous epithelials so I feel this would be appropriate at this time. She is aware that she needs to return if she develops fevers or any infectious symptoms or symptoms consistent with UTI/pyelonephritis. Return precautions were discussed. Patient feels comfortable with this plan. She has not seen Urology before and was given referral if she has not had proved in the next 2-3 days. Just prior to discharge patient began to have some recurrence of pain and req uested additional pain medication. Patient given a dose of [place]. Discharge Plan Departure Patient Disposition: Home Clinical Impression: Acute left flank pain Instructions: Kidney Stones -- Adult Activity Restrictions/Additional Instructions: Follow up in the next 2-3 days if you are not having any symptoms. Included below is referral to urology if your symptoms have not resolved. Your urine cultures are pending if positive for infection you will be contacted to start antibiotics. Take Flomax once daily until gone. You may take zofran 1 tablet every 6 hours as needed for nausea/vomiting You may take ibuprofen up to 600 mg every 6 hours as needed. You may take [place] 1-2 tablets every 6 hours as needed. This medication can make you sleepy do not drive, perform hazardous activities or make any major decisions while taking it. This medication will make you constipated please ta ke a stool softener once to twice daily until stools are soft and regular. Prescription to [facility] in [place]. Please return for fevers greater 100.4 F, rapidly worsening or intractable back, abdominal or flank pain, persistent vomiting, lightheadedness or passing out, inability urinate, dysuria, frequency or urgency, black or bloody stools, new chest pain or shortness of breath or other new or concerning symptoms. Prescriptions: New tamsulosin [Flomax] 0.4 mg capsule 0.4 mg PO DAILY Qty: 7 RF: 0 hydrocodone-acetaminophen 5-325 mg tablet 1 tab PO Q6H PRN (Reason: pain) Qty: 14 RF: 0 ondansetron HCl [Zofran] 4 mg tablet 4 mg PO Q6H PRN (Reason: nausea and vomiting) Qty: 14 RF: 0 No Action losartan 50 mg Tablet 50 mg PO DAILY RF: 0 cyclobenzaprine 10 mg Tablet 10 mg PO TID PRN (Reason: Back Pain) RF: 0 trazodone 50 mg Tablet 50 mg PO BEDTIME RF: 0 atorvastatin 10 mg Tablet 10 mg PO DAILY RF: 0 methylphenidate HCl 40 mg Capsule,Er Biphasic 50-50 40 mg PO DAILY RF: 0 metformin 1,000 mg Tablet Extended Release 24hr 1,000 mg PO QPM RF: 0 ondansetron 4 mg tablet,disintegrating 4 mg PO Q4H PRN (Reason: nausea and vomiting) Qty: 10 RF: 0 hydrocodone-acetaminophen [[place]] 5-325 mg tablet 1 tab PO Q4-6H PRN (Reason: pain) Qty: 10 RF: 0 Referrals: Mimi Wells MD [Physician] - Elkin Ernandez MD [Primary Care Provider] -
[2021-03-08] MEDS: SODIUM CHLORIDE 0.9% 1,000 ML 1000 ML IV (06:52)
[2021-03-08] MEDS: ONDANSETRON 4 MG/2 ML INJ IV (06:53)
[2021-03-08] MEDS: KETOROLAC 30 MG/ML VIAL 15 MG IV (06:53)
[2021-03-08 07:02] LABS: Add Manual Diff / Slide Review NO; Basophils Absolute Auto 0 /uL (0-100); Basophils Percent Auto 0.3 % (0-2); Eosinophils Absolute Auto 100 /uL (0-450); Eosinophils Percent Auto 0.5 % (2-4); Hematocrit 38.6 % (36-46); Hemoglobin 12.6 g/dL (12.0-16.0); Lymphocytes Absolute Auto 2500 /uL (1100-4500); Lymphocytes Percent Auto 20.4 % (25-40); Mean Corpuscular HGB Conc 32.5 % (30-36); Mean Corpuscular Hemoglobin 28.9 PG (26-34); Mean Corpuscular Volume 88.9 fL (80-100); Monocytes Absolute Auto 700 /uL (0-900); Monocytes Percent Auto 5.3 % (3-14); Neutrophils Absolute Auto 9000 /uL (1500-7000); Neutrophils Percent Auto 73.5 % (50-75); Platelet Count 306 X10^3/uL (150-400); Red Blood Cell Count 4.35 X10^6/uL (4.0-5.2); Red Cell Distribution Width 13.8 % (11.6-14.8); White Blood Cell Count 12.2 X10^3/uL (4.5-11.0)
[2021-03-08 07:11] LABS: BUN Creatinine Ratio 16.5 (6-22); Blood Urea Nitrogen 18 mg/dL (7-17); Calcium 9.8 mg/dL (8.4-10.2); Carbon Dioxide 25 mmol/L (22-32); Chloride 106 mmol/L (98-107); Estimated Glomerular Filt Rate 49.9 mL/min (>60); Glucose 203 mg/dL (80-110); HEMOLYSIS < 15 (0-50); Potassium 4.2 mmol/L (3.4-5.1); Sodium 140 mmol/L (137-145)
[2021-03-08 07:42] LABS: Bacteria Urine Many (>30); Culture Indicated Urine Specimen Cultured; RBC Urine >100/HPF (0-5/HPF); Squamous Epithelial Cell Urine 1-5 /HPF (0-5/HPF); WBC Urine 0-1/HPF (0-5/HPF)
[2021-03-08] MEDS: TAMSULOSIN 0.4 MG CAPSULE PO (08:34)
[2021-03-08] MEDS: HYDROCODONE/ACET 5/325 TABLET 1 TAB PO (08:38)
[2021-03-08 08:43] VITALS: BP 178/88; PULSE 84; O2SAT 99
== END 2021-03-08 08:44 | disposition home or self-care (01) ==
PROVIDERS: Emergency Medicine; Emergency Provider Emergency Medicine; PCP Family Medicine
DX: R10.9 Unspecified abdominal pain (principal); M54.5 Low back pain
CPT/HCPCS: 36415; 80048; 81003; 81015; 85025; 87086; 96361; 96374; 96375; 99284; J1885; J2405

== ENCOUNTER → 2024-01-15 14:57 | Outpatient (CLI) | payer OTHER, SELFPAY ==
--- NOTE | 2024-01-15 15:38 | DI.MRI.S_ITS ---
PROCEDURE: MR LUMBAR SPINE WO CON INDICATIONS: Degenerative joint disease TECHNIQUE: Noncontrast sagittal T1 spin echo and T2 fast echo, sagittal STIR, and T2 fast spin echo through the lumbar spine. In cases with scoliosis, additional coronal T2 fast spin echo may be performed. COMPARISON: [facility] Outside Film, MR, MR LUMBAR SPINE WITHOUT CONTRAST, 04/15/2020, 12:59. FINDINGS: Image quality: Excellent. Alignment and Curvature: Trace L4-5 anterolisthesis. Otherwise normal alignment. Bone Marrow: Marrow is of normal overall signal. No acute vertebral body compression fractures. Spinal Cord: Conus medullaris terminates at the L1 level. Visualized cord demonstrates normal signal and size. Paraspinous Soft Tissues: No paravertebral masses. T12-L1: Minor right and foraminal broad-based disc bulge. L1-L2: Mild facet arthropathy. L2-L3: Mild circumferential disc bulge and facet arthropathy. Mild to moderate ligamentum flavum hypertrophy. Mild central canal narrowing. Mildly progressed compared to the prior study. L3-L4: Minor circumferential disc bulge. Moderate to severe facet arthropathy with ligamentum flavum hypertrophy. Moderate central canal stenosis with effacement of CSF, progressed compared to the prior study due to progression in disc bulge. Mild to moderate bilateral foraminal narrowing due to facet arthropathy. L4-L5: Mild posterior disc uncovering due to anterolisthesis. Moderate to severe facet arthropathy. Mild central canal narrowing and mild bilateral foraminal narrowing without significant progression. L5-S1: Small broad-based posterior disc protrusion encroaching on the left S1 lateral recess nerve root without significant change compared to prior. IMPRESSION: Progression of circumferential disc bulge at L3-4, now causing moderate central canal stenosis and effacement of CSF. Mild central canal narrowing at L2-3 has also mildly progressed. No significant change in the anterolisthesis at L4-5. Dictated by: Ellen Dixon M.D. on 01/17/2024 at 11:02 Approved by: Ellen Dixon M.D. on 01/17/2024 at 11:17
== END ==
PROVIDERS: PCP Internal Medicine; Referring Provider Internal Medicine; Visit Provider Internal Medicine
DX: M47.896 Other spondylosis, lumbar region (principal); M51.36 Other intervertebral disc degeneration, lumbar region; M48.061 Spinal stenosis, lumbar region without neurogenic claudication; M51.27 Other intervertebral disc displacement, lumbosacral region
CPT/HCPCS: 72148

== ENCOUNTER 2024-08-21 11:26 | Day surgery (SDC) | payer OTHER, SELFPAY ==
--- NOTE | 2024-08-21 | PATH_ITS ---
[place] Accession Number: [id number] No. of containers..02 Tissue . 01 Material submitted: . PART A: colon - TRANSVERSE POLYP PART B: colon - DESCENDING POLYP . 01 Diagnosis: A. TRANSVERSE COLON, POLYP: Tubular adenoma. . B. DESCENDING COLON, POLYP: Tubular adenoma. [facility] 08/22/2024 1053 Local . 01 Electronically signed: . Dominique Lopez MD, Pathologist NPI- [id number] . 01 Gross description: . Part A: TRANSVERSE POLYP: Received in formalin is 1 fragment(s) of sheriff, soft tissue measuring 0.3 x 0.2 x 0.2 cm submitted entirely in 1 cassette(s) Part B: DESCENDING POLYP: Received in formalin are 2 fragment(s) of sheriff, soft tissue measuring 0.1 x 0.1 x 0.1 cm to 0.6 x 0.3 x 0.3 cm submitted entirely in 1 cassette(s) /BENN[facility] 08/22/2024 0129 Local . 01 Pathologist provided ICD-10: D12.3, D12.4 . 01 CPT . 205009, 080425 Specimen Comment: A courtesy copy of this report has been sent to [phone] Performed at: [address], [place], [place] [id number] MD Fausto Iglesias MD Phone: [phone]
[2024-08-21 12:03] VITALS: BP 135/85; PULSE 92; RESP 16; TEMP 36.1; O2SAT 97
--- NOTE | 2024-08-21 12:23 | PM.HP.1 ---
History of Present Illness History of Present Illness Date Patient Seen: 08/21/24 Time Patient Seen: 12:23 Chief complaint: Colonoscopy w/poss bx Narrative: 74-year-old female with a history of colon polyps here for colonoscopy. [facility] Medical History Depression Sleep apnea Crohn's colitis Hypertension Diabetes mellitus Social History Smoking Status: Never smoker alcohol intake: current Meds Home Medications and Allergies Home Medications Medication Instructions Recorded Confirmed Type atorvastatin 10 mg tablet 10 mg PO DAILY 02/01/19 08/21/24 History cyclobenzaprine 10 mg tablet 10 mg PO TID PRN Back Pain 02/01/19 08/21/24 History trazodone 50 mg tablet 100 mg PO BEDTIME 02/01/19 08/21/24 History celecoxib 100 mg capsule 100 mg PO BID PRN pain 08/21/24 08/21/24 History gabapentin 600 mg tablet 600 mg PO BID 08/21/24 08/21/24 History losartan 50 mg tablet 50 mg PO DAILY 08/21/24 08/21/24 History multivitamin 1 tab PO DAILY 08/21/24 08/21/24 History omeprazole 20 mg capsule,delayed 20 mg PO BID 08/21/24 08/21/24 History release semaglutide 0.25 mg or 0.5 mg (2 0.5 mg SUBCUT WEEKLY 08/21/24 08/21/24 History mg/3 mL) subcutaneous pen injector (Ozempic) Allergies Allergy/AdvReac Type Severity Reaction Status Date / Time Iodinated Contrast Media Allergy Severe Hives Verified 08/21/24 11:52 [Iodinated Contrast- Oral and IV Dye] adhesive Allergy Intermediate Blister Verified 08/21/24 11:52 zolpidem [From Ambien] Allergy Intermediate Nose bleeds Verified 08/21/24 11:52 Sulfa (Sulfonamide Allergy Mild unknown Verified 08/21/24 11:52 Antibiotics) amoxicillin AdvReac Severe Diarrhea Verified 08/21/24 11:52 Review of Systems Review of Systems ROS: Yes All systems reviewed with the patient and are negative except as otherwise documented Exam Vital Signs (past 8 hours): - 08/21/24 12:03 Temperature 97 F L Pulse Rate 92 H Respiratory Rate 16 Blood Pressure 135/85 Pulse Oximetry 97 Oxygen Delivery Method Room Air Oxygen Delivery Method Room Air Const General: cooperative HENMT Head: normal to inspection Eyes General: appearance normal, both eyes and all related structures Neck Neck: normal visual inspection Chest Chest: normal inspection of the chest Resp Effort & Inspection: normal respiratory effort Cardio Rate: regular rate GI Inspection: normal to inspection Skin General: no rashes or lesions noted Neuro General: patient alert and patient awake Extrem General: normal to inspection and no pedal edema Psych Appearance: grossly normal Assessment & Plan Assessment & Plan narrative: 74-year-old female with a personal history of colon polyps. Colonoscopy is pursued today. Time-Based Coding :: [TOTAL MINUTES] spent with patient and on the chart (including review of chart, obtaining history, exam, reviewing outside data, placing orders, documenting exam and treatment plan, and counseling patient) on [DATE].
--- NOTE | 2024-08-21 12:24 | PM.PREOP ---
Pre-operative Note Interval Note History & Physical reviewed/Exam performed by Physician: Yes Changes to H&P: No ASA Class (for procedural sedation): III
--- NOTE | 2024-08-21 13:04 | P.OP.COLON_ITS ---
Operative Date/Time/Diagnoses Date of procedure: 08/21/24 Time of procedure: 13:04 Pre-op diagnosis: Personal history of colon polyps Post-op diagnosis: same Procedure & Clinicians Study performed: Colonoscopy with cold snare polypectomy and cold forceps polypectomy Same procedure as scheduled: Yes Indications: Personal history of colon polyps Surgeon: Noman Green Procedure Notes SCOAP/Timeout: Done Procedure in detail: After the risks and benefits were explained, written and verbal informed consent was obtained. The patient was brought into the procedure room and placed into the left lateral decubitus position. Please see anesthesia note for sedation details. Digital rectal examination was accomplished. The scope was introduced into the patient and advanced under direct visualization to the cecum as id entified by the appendiceal orifice and ileocecal valve. The scope was slowly withdrawn to carefully examine the mucosa for any defects or lesions. Comprehensive imaging was accomplished throughout the rectum including the dentate line. The colon was decompressed, the scope was then removed from the patient who tolerated the procedure well. Pediatric colonoscope Bowel prep adequate Scope withdrawal time: 14 minutes Sedation minutes: 21 Complications: none Impression: In the transverse colon there was a diminutive 2-3 mm polyp removed with cold forceps. In the descending colon there was a sessile 4-5 mm polyp removed with cold snare. There was 1 small fragment that seemed to remain after the cold snare excision so this was completely removed with the cold forceps. No additional mucosal pathology was appreciated throughout. Endoscopic diagnosis Two small colon polyps Post-procedure Plan for aftercare: 1. Await histology. 2. Consider repeat colonoscopy 7 years. Disposition: PACU
[2024-08-21 13:09] VITALS: BP 104/69; PULSE 92; RESP 15; TEMP 36.2; O2SAT 94
[2024-08-21 13:14] VITALS: BP 110/63; PULSE 90; RESP 16; TEMP 36.2; O2SAT 95
[2024-08-21 13:25] VITALS: BP 117/70; PULSE 72; RESP 16; TEMP 36.2; O2SAT 98
== END 2024-08-21 13:36 | disposition home or self-care (01) ==
PROVIDERS: PCP Internal Medicine; Referring Provider Internal Medicine Gastroenterology; Visit Provider Internal Medicine Gastroenterology
PROC: 0DJD8ZZ Inspection of Lower Intestinal Tract, Via Natural or Artificial Opening Endoscopic (ICD-10-PCS; CPT 45378; principal; 2024-08-21 12:30)
DX: Z12.11 Encounter for screening for malignant neoplasm of colon (principal); Z86.0100 Personal history of colon polyps, unspecified; D12.3 Benign neoplasm of transverse colon; D12.4 Benign neoplasm of descending colon
CPT/HCPCS: 45385; 45380; 82962; J2405; J2704

== ENCOUNTER → 2025-08-24 13:09 | Outpatient (CLI) | payer OTHER, SELFPAY ==
--- NOTE | 2025-08-24 13:11 | DI.CT.S_ITS ---
PROCEDURE: CT CHEST WO CON
== END ==
LOC: CT 13:11
PROVIDERS: PCP Family Medicine; Referring Provider Family Medicine; Visit Provider Student in an Organized Health Care Education/Training Program
DX: R91.1 Solitary pulmonary nodule (principal); K80.20 Calculus of gallbladder without cholecystitis without obstruction
CPT/HCPCS: 71250